=== PATIENT | female | born 1980 | race Caucasian/White ===

== ENCOUNTER 2017-04-07 10:30 | Emergency (ER) | payer MEDICAID, OTHER ==
[~2017-04-07] VITALS: Wt 60.0 kg
[2017-04-07] MEDS ORDERED: ACETAMINOPHEN 325 MG TAB PO STA (10:50)
--- NOTE | 2017-04-07 10:55 | ERD ---
ER Documentation Chief Complaint Date/Time DATE: 04/07/17 Chief Complaint Vaginal bleeding, cramping, HPI The patient is a 36-year-old female, A2, who presents to the Emergency Department with complaint of vaginal spotting and cramping. The patient reports that her last menstrual period was 02/25/2017. On 04/04/2017 she was seen at [facility], at which time a urine was performed and she was confirmed to be . 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 Upon waking up this morning, she noted mild lower abdominal cramping, mostly present to the left side. She then went to the restroom, and upon wiping , noted a small amount of vaginal spotting. She denies any passage of clots or tissue. Denies fevers, sweats, chills, nausea or vomiting. Denies dysuria, polyuria or flank pain. Denies new vaginal discharge.Denies headache, dizziness , weakness or lower extremity swelling. She rates her current pain as 3 out of 10, but has not yet taken any medication for pain relief. No other complaints at this time. ROS All systems reviewed and are negative except as per history of present illness. Medications Home Meds Active Scripts Nitrofurantoin Monohyd Macrocr* (Macrobid*) 100 Mg Capsr, 100 MG PO BID for 7 Days, CAP Prov:AMAN REDD PA-C 04/07/17 Physical Exam Vitals Vital Signs Date Time Temp Pulse Resp B/P Pulse Ox O2 Delivery O2 Flow Rate FiO2 04/07/17 13:08 77 18 120/80 99 Room Air 04/07/17 10:33 96.5 82 21 108/64 100 Physical Exam GENERAL: Well-developed, well-nourished, female, in no acute distress HEENT: Head is normocephalic, atraumatic. No scleral pallor or icterus. Pupils equal, round and reactive to light. Extraocular movements intact. Conjunctiva pink. Moist mucous membranes. NECK: Supple. Full range of motion. RESPIRATORY: Lungs are clear to auscultation bilaterally. Equal breath sounds. Normal expiratory effort. CARDIOVASCULAR: Regular rate and rhythm. S1 and S2 normal. GASTROINTESTINAL: Abdomen is soft, non-tender, and non-distended. No guarding, no rebound tenderness. Normal bowel sounds. No gross peritonitis. FLANK: No CVA tenderness. BACK: No midline tenderness. EXTREMITIES: No clubbing, cyanosis, or edema. Normal skin perfusion. Moving all extremities. No focal swelling or erythema. NEUROLOGIC: The patient is alert, awake, and oriented x 3. No focal neurologic deficits. INTEGUMENT: Skin is intact. Warm and dry. PSYCHIATRIC: Cooperative. Result Diagram: 04/07/17 1050 Results 24 hrs Laboratory Tests Test 04/07/17 10:50 04/07/17 11:48 White Blood Count 5.710^3/ul Red Blood Count 4.5410^6/ul Hemoglobin 13.3g/dl Hematocrit 39.1% Mean Corpuscular Volume 86.1fl Mean Corpuscular Hemoglobin 29.3pg Mean Corpuscular Hemoglobin Concent 34.0g/dl Red Cell Distribution Width 13.0% Platelet Count 85171^3/UL Mean Platelet Volume 11.0fl Neutrophils % 60.7% Lymphocytes % 29.2% Monocytes % 6.0% Eosinophils % 3.4% Basophils % 0.5% Nucleated Red Blood Cells % 0.0/100WBC Neutrophils # 3.410^3/ul Lymphocytes # 1.710^3/ul Monocytes # 0.310^3/ul Eosinophils # 0.210^3/ul Basophils # 0.010^3/ul Nucleated Red Blood Cells # 0.010^3/ul Beta HCG, Quantitative 1071.5mIU/ml Urine Color LT. YELLOW Urine Clarity CLEAR Urine pH 7.5 Urine Specific [place] 1.015 Urine Ketones NEGATIVE Urine Nitrite NEGATIVE Urine Bilirubin NEGATIVE Urine Urobilinogen 0.2 E.U./dL Urine Leukocyte Esterase TRACE Urine Microscopic RBC 5-10/HPF Urine Microscopic WBC 2-5/HPF Urine Epithelial Cells MANY Urine Bacteria MANY Urine Hemoglobin 2+ Urine Glucose NEGATIVE% Urine Total Protein 1+ Current Medications Medications (Trade) Dose Ordered Sig/Ariadna Route PRN Reason Start Time Stop Time Status Last Admin Dose Admin Acetaminophen (Tylenol Tab) 650 mg ONCE STAT PO 04/07/17 10:50 04/07/17 10:52 DC 04/07/17 12:32 Procedures/MDM DIAGNOSTIC TESTS AND INTERPRETATION: PROCEDURE: US OB. CLINICAL INDICATION: Biophysical profile. TECHNIQUE: Transabdominal and transvaginal views of the pelvis are available for review. COMPARISON: No prior studies are available for comparison. FINDINGS: The uterus measured 9.14 cm sagittal by 5.8 cm AP by 7.5 cm transverse. The endometrial stripe measures 1 cm. There is a 0.7 x 0.4 x 0.7 cm gestational sac. Mean sac diameter is 0.6 cm. This calculates out to 5 weeks and 1 day. No pole is yet identified. A yolk sac is noted. Placenta: Not available. Presentation: Not available. [place]-rump length: Not available. heart rate: Not detected at this time. Amniotic fluid volume: Normal. Ultrasound estimated gestational age: The right left ovaries are normal with normal blood flow. A 1.9 x 2.2 x 2.4 cm mass is identified in the left ovary was surrounding increased blood flow suspicious for a corpus luteal cyst of . No abnormal adnexal masses observed. No ovarian or adnexal mass lesion is seen. There is no free fluid. IMPRESSION: 1. A gestational sac is identified. AUA: 5 weeks 1 day plus or minus 0 weeks 3 days. A yolk sac is identified. The MARIO ALBERTO (AUA): December 07, 2018. No cardiac activity is identified at this time but this may be the result of the early stage of the . Follow-up imaging is recommended to confirm a viable fetus. 2. 1.9 x 2.2 x 2.4 cm corpus luteal cyst of in the left ovary. Physician Chan Date Time Electronically viewed and signed by Physician Chan on 04/07/2017 12:48 MEDICAL DECISION MAKING: The possibility of threatened vs. early vs. ectopic was discussed with the patient and she was told to follow up with her ANIMAL GENETICIST within 2-3 days for re-evaluation. The patient complies and agrees with plan. This is a 36-year-old female presenting to the Emergency Department complaining of cramping and vaginal bleeding. She had no significant abnormalities noted on physical examination. Vital signs were stable. Differential diagnosis includes, but is not limited to, ectopic , cervicitis, fibroids, molar , implantation bleeding, heterotopic , septic , missed , incomplete , inevitable , threatened , complete , coagulopathy, fibroids, adenomyosis, endometriosis, neoplasia, vaginitis, PID, vaginal trauma, dysfunctional uterine bleeding. No significant abnormalities were noted on testing ordered. Urinalysis revealed many bacterial, trace urine leukocyte esterase, few WBC, indicating possible infection. Beta hCG is 1071.5. Rh (+), no indication for RhoGAM. Ultrasound performed revealed a gestation sac with yolk sac, which is measured at approximately 5 weeks 1 day +/- 3 days. No cardiac activity was visualized, though this may be secondary to early stage of . Additionally a left corpus luteal cyst of was visualized, possibly related to the patient's pain. Otherwise, no abnormal adnexal masses or large fluid collections. After rest and administration of Tylenol, the patient reports no new complaints, and states that her cramping has resolved. Upon review and interpretation of the patient's presentation and overall ER course, I believe the patient's symptoms are most consistent with threatened vs. early . However, at this time, ectopic cannot be ruled out. The patient patient is in stable condition with stable vital signs and therefore can be discharged home with prescription for Macrobid and given strict return precautions for signs of deteriorating or worsening condition. The patient is advised to follow up with her ANIMAL GENETICIST within 2-3 days for reevaluation and further management, or return to the ER sooner for any worsening symptoms. I shared all laboratory and diagnostic imaging studies with the patient at length and in great detail, and the patient verbally understands and agrees with the plan for further observation and care as an outpatient. At the time of discharge, all questions were answered. Departure Diagnosis: Primary Impression: Vaginal bleeding in patient at less than 20 weeks gestation Additional Impressions: Threatened Urinary tract infection Urinary tract infection type: acute cystitis Hematuria presence: with hematuria Qualified Code: N30.01 - Acute cystitis with hematuria Condition: Stable Patient Instructions: Bleeding During Early , Possible Miscarriage ( Threatened ), Understanding Urinary Tract Infections (UTIs) Additional Instructions: Call your ANIMAL GENETICIST TOMORROW for an appointment during the next 2-3 days.See the doctor sooner or return here if your condition worsens before your appointment time. AMAN REDD PA-C April 07, 2017 10:55
[2017-04-07 11:10] LABS: ADD SCAN DIFF NO
[2017-04-07 11:17] LABS: BASOPHILS % 0.5 % (0.0-2.0); EOSINOPHILS # 0.2 10^3/ul (0.0-0.5); EOSINOPHILS % 3.4 % (0.0-7.0); HEMATOCRIT 39.1 % (37.0-47.0); HEMOGLOBIN 13.3 g/dl (12.0-16.0); LYMPHOCYTES # 1.7 10^3/ul (0.8-2.9); LYMPHOCYTES % 29.2 % (15.0-51.0); MEAN CORPUSCULAR HEMOGLOBIN 29.3 pg (29.0-33.0); MEAN CORPUSCULAR VOLUME 86.1 fl (82.0-101.0); MONOCYTE # 0.3 10^3/ul (0.3-0.9); NEUTROPHIL # 3.4 10^3/ul (1.6-7.5); NEUTROPHILS % 60.7 % (39.0-77.0); PLATELET COUNT 188 10^3/UL (140-415); RED BLOOD COUNT 4.54 10^6/ul (4.20-5.40); WHITE BLOOD COUNT 5.7 10^3/ul (4.8-10.8)
[2017-04-07 12:18] LABS: ADD UMIC YES; URINE BILIRUBIN (Dip) NEGATIVE (NEGATIVE); URINE BLOOD (Dip) 2+ (NEGATIVE); URINE COLOR LT. YELLOW (YELLOW); URINE GLUCOSE (Dip) NEGATIVE (NEGATIVE); URINE KETONES (Dip) NEGATIVE (NEGATIVE); URINE LEUKOCYTE ESTERASE (Dip) TRACE (NEGATIVE); URINE NITRITE (Dip) NEGATIVE (NEGATIVE); URINE TOTAL PROTEIN (Dip) 1+ (NEGATIVE); URINE UROBILINOGEN (Dip) 0.2 E.U./dL (0.1-1.0)
[2017-04-07 12:32] LABS: BACTERIA,URINE MANY
--- NOTE | 2017-04-07 12:48 | RADRPT ---
PROCEDURE: US OB. CLINICAL INDICATION: Biophysical profile. TECHNIQUE: Transabdominal and transvaginal views of the pelvis are available for review. COMPARISON: No prior studies are available for comparison. FINDINGS: The uterus measured 9.14 cm sagittal by 5.8 cm AP by 7.5 cm transverse. The endometrial stripe measures 1 cm. There is a 0.7 x 0.4 x 0.7 cm gestational sac. Mean sac diam eter is 0.6 cm. This calculates out to 5 weeks and 1 day. No pole is yet identified. A yolk sac is noted. Placenta: Not available. Presentation:Not available. [place]-rump length:Not available. heart rate:Not detected at this time. Amniotic fluid volume: Normal. Ultrasound estimated gestational age: The right left ovaries are normal with normal blood flow. A 1.9 x 2.2 x 2.4 cm mass is identified i n the left ovary was surrounding increased blood flow suspicious for a corpus luteal cyst of pregnan cy. No abnormal adnexal masses observed. No ovarian or adnexal mass lesion is seen. There is no free fluid. IMPRESSION: 1. A gestational sac is identified. AUA: 5 weeks 1 day plus or minus 0 weeks 3 days. A yolk sac i s identified. The MARIO ALBERTO (AUA): December 07, 2018. No cardiac activity is identified at this time but this may be the result of the early stage of the . Follow-up imaging is recommended to con firm a viable fetus. 2. 1.9 x 2.2 x 2.4 cm corpus luteal cyst of in the left ovary. RPTAT:AAJJ Physician Chan Date Time Electronically viewed and signed by Physician Chan on 04/07/2017 12:48 JM/
[2017-04-07] MEDS ORDERED: NITR-58 PO (12:59)
[2017-04-07 13:08] VITALS: BP 120/80; PULSE 77; RESP 18
== END 2017-04-07 13:09 | disposition home or self-care (01) ==
LOC: FTE 10:30
DX: O20.0 Threatened abortion (principal); O23.11 Infections of bladder in pregnancy, first trimester; Z3A.01 Less than 8 weeks gestation of pregnancy
CPT/HCPCS: 76801; 76817; 81001; 84702; 85025; 86900; 86901; Z7610; 36415

== ENCOUNTER 2017-04-09 08:31 | Emergency (ER) | payer MEDICAID ==
[~2017-04-09] VITALS: Ht 154.9 cm; Wt 61.0 kg
[~2017-04-09 08:31] MED LIST: NITR-58 PO
[2017-04-09 08:33] VITALS: Ht 154.9 cm; Wt 61.0 kg
--- NOTE | 2017-04-09 11:04 | RADRPT ---
PROCEDURE: US OB. CLINICAL INDICATION: Vaginal bleeding, . TECHNIQUE: Transabdominal and transvaginal views of the pelvis are available for review. COMPARISON: 04/07/2017 FINDINGS: Uterus measures 9.7 x 4.9 x 6.1 cm. There is a small intrauterine gestational sac with a yolk sac a nd embryonic pole identified. No definite cardiac activity is seen on the current study. Mean gest ational sac size is 0.67 cm consistent with a 6-ptan-0-day gestation. The mean crown-rump length me asures 0.29 cm consistent with a 9-gsea-5-day gestation. No abnormal fluid collections are seen. T he right ovary measures 3.2 x 1.8 x 2.8 cm. The left ovary measures 2.4 x 1.5 x 2.9 cm. There is n o change in the some mixed echogenicity left ovarian mass measuring approximately 2.2 cm in diameter . There are no adnexal masses or free fluid in the cul-de-sac. IMPRESSION: 1. Intrauterine gestational sac with yolk sac and embryonic pole without cardiac activity measuring approximately 5 weeks 4 days. Continued surveillance with serial quantitative beta HCGs and follow- up ultrasound is suggested. RPTAT: AACC Physician Pau Date Time Electronically viewed and signed by Physician Pau on 04/09/2017 11:04 /
--- NOTE | 2017-04-09 11:28 | ERD ---
ER Documentation Chief Complaint Date/Time DATE: 04/09/17 TIME: 832 Chief Complaint Patient here for a recheck of labwork HPI 36-year-old female presents to the emergency department today for recheck of vaginal bleeding. Patient was seen proximal March 2 days ago when she had a workup for early trimester vaginal bleeding. Patient returns today complaining that she still has some vaginal bleeding, but it is not significantly severe. She has no significant pain. She has no significant cramping in his past no tissue. ROS All systems reviewed and are negative except as per history of present illness. Medications Home Meds Active Scripts Nitrofurantoin Monohyd Macrocr* (Macrobid*) 100 Mg Capsr, 100 MG PO BID for 7 Days, CAP Prov:AMAN REDD PA-C 04/07/17 Allergies Allergies: Coded Allergies: No Known Allergy (Unverified , 04/09/17) PMhx/Soc Medical and Surgical Hx: pt denies Medical Hx, pt denies Surgical Hx Hx Alcohol Use: No Hx Substance Use: No Hx Tobacco Use: No Smoking Status: Never smoker FmHx Noncontributory for chief complaint Physical Exam Vitals Vital Signs Date Time Temp Pulse Resp B/P Pulse Ox O2 Delivery O2 Flow Rate FiO2 04/09/17 08:33 98.3 69 20 106/51 99 Physical Exam General: well developed, well nourished, in no distress. Neuro: Normal speech, gait, balance Abdomen: Soft, nontender, nondistended. Results 24 hrs Laboratory Tests Test 04/09/17 09:09 Beta HCG, Quantitative 1068.7mIU/ml Procedures/MDM Patient was taken to a room, seen and examined Lab tests and ultrasounds were reviewed. Medical decision makin-year-old female presents the emergency department for recheck of early trimester vaginal bleeding. Patient's ultrasound is clear that she does not have an ectopic, but her hCG is not rising as I would expect for a normal . This is still somewhat unclear if she is miscarrying as the ultrasound seems to be showing progression from her last ultrasound. At this time, I am clear that she does not have an ectopic, but I have informed her that we need to continue to check with hCGs and ultrasounds to see about the viability of this . This time she is reassured and appropriate for outpatient care. Departure Diagnosis: Primary Impression: Vaginal bleeding Condition: Stable Additional Instructions: Please follow up with your plant maintenance technician in the next 3-5 days. Take a copy of your results with you. You will need to have another ultrasound and blood test in the next 3-5 days. SANFORD GOMEZ April 09, 2017 11:28
== END 2017-04-09 11:32 | disposition home or self-care (01) ==
LOC: FTE 08:31
DX: O20.9 Hemorrhage in early pregnancy, unspecified (principal); R10.2 Pelvic and perineal pain; Z3A.01 Less than 8 weeks gestation of pregnancy
CPT/HCPCS: 76801; 76817; 84702; Z7502